=== PATIENT | female | born 1975 | race Caucasian/White ===

== ENCOUNTER → 2016-08-21 | Outpatient (CLI) | payer OTHER | LOC: FIMAGING 09:32 | PROVIDERS: ATTEND Obstetrics & Gynecology | DX: O09.522 Supervision of elderly multigravida, second trimester (principal); Z3A.13 13 weeks gestation of pregnancy; Z98.891 History of uterine scar from previous surgery ==

== ENCOUNTER 2017-02-28 18:45 | Inpatient (IN) | payer OTHER ==
[2017-02-28] MEDS ORDERED: OXYTOCIN/RINGERS LACTATE 1,000 ML IV PRN (19:42)
[2017-02-28] MEDS ORDERED: TERBUTALINE SULFATE 1 MG/ML VIAL IV PRN (19:42)
[2017-02-28] MEDS ORDERED: EPSOM SALT 454 GM TP PRN (19:42)
[2017-02-28] MEDS ORDERED: LIDOCAINE 1% 300 MG/30 ML SDV SC PRN (19:42)
[2017-02-28] MEDS ORDERED: OLIVE OIL 118 ML BTL MISC PRN (19:42)
[2017-02-28] MEDS ORDERED: LR 500 ML IV SCH ×2 (20:00→23:30)
[2017-02-28] MEDS: LR 1,000 ML IV PRN ×3 (20:09→22:30)
[2017-02-28 20:31] LABS: % IMMATURE GRANULYOCYTES 0.6 % (0.0-1.1); ABSOLUTE IMMATURE GRANULOCYTES 0.08 10^3/uL (0.00-0.10); ADD DIFF? NO; ADD MORPH? NO; ADD SCAN? NO; ATYPICAL LYMPHOCYTE FLAG 0 (0-99); FRAGMENT RBC FLAG 0 (0-99); HEMOGLOBIN 12.6 g/dL (12.6-16.3); LEFT SHIFT FLG 0 (0-99); LIPEMIA HEMOLYSIS FLAG 80 (0-99); MEAN CELL HEMOGLOBIN 29.4 pg (27.9-34.1); MEAN CELL HEMOGLOBIN CONCENTR. 33.2 g/dL (32.4-36.7); MEAN CELL VOLUME 88.6 fL (81.5-99.8); MEAN PLATELET VOLUME 13.2 fL (8.7-11.7); PLATELET CLUMPS FLAG 0 (0-99); PLATELET COUNT 166 10^3/uL (150-400); RED BLOOD CELL COUNT 4.29 10^6/uL (4.18-5.33); RED CELL DISTRIBUTION WIDTH 13.5 % (11.5-15.2)
[2017-02-28] MEDS ORDERED: TERBUTALINE SULFATE 1 MG/ML VIAL ONE (21:09)
[2017-02-28] MEDS ORDERED: AMMONIA AROMATIC 1 EACH AMP IH ONE (21:09)
[2017-02-28] MEDS ORDERED: OLIVE OIL 118 ML BTL ONE (21:09)
[2017-02-28] MEDS ORDERED: LIDOCAINE 1% 300 MG/30 ML SDV ONE (21:09)
[2017-02-28] MEDS ORDERED: OXYTOCIN 10 UNIT/ML VIAL ONE (21:10)
[2017-02-28] MEDS ORDERED: MISOPROSTOL 200 MCG TAB ONE (21:10)
[2017-02-28] MEDS ORDERED: METHYLERGONOVINE MAL 0.2 MG/ML INJ ONE (21:12)
[2017-02-28] MEDS ORDERED: fentaNYL 2MCG/ML/BUP 0.1% RTU 100 ML BAG EP ONE (21:47)
[2017-02-28] MEDS ORDERED: PHENYLEPHRINE HCL 100 MCG/ML SYR ONE (21:48)
[2017-02-28] MEDS ORDERED: NALOXONE HCL 0.4 MG/ML INJ IVP PRN (23:19)
[2017-02-28] MEDS ORDERED: PHENYLEPHRINE HCL 100 MCG/ML SYR IVP PRN (23:19)
[2017-02-28] MEDS ORDERED: ONDANSETRON 4 MG/2 ML VIAL IVP PRN (23:19)
--- NOTE | 2017-02-28 23:19 | PREANESOB ---
Obstetric Pre-Anesthesia Info - General Info : 2 Para: 1 Anesthesia Allergies/Adverse Reactions: Allergy/AdvReac Type Severity Reaction Status Date / Time No Known Allergies Allergy Unverified 02/28/17 19:40 Visit Medications: Generic Name Dose Route Start Last Admin Trade Name Pamela PRN Reason Stop Dose Admin Lactated Ringer's 1,000 mls @ 0 mls/hr 02/28/17 19:42 02/28/17 22:30 Lr IV 08/27/17 19:41 1,000 mls PRN PRN Administration SEE PROTOCOL CONDITIONS Protocol Per Protocol Oxytocin/Lactated Ringer's 1,000 mls @ 150 mls/hr 02/28/17 19:42 Pitocin 20 Units/Lr (Premix) IV PRN PRN Post- bleeding Lactated Ringer's 500 mls @ 0 mls/hr 02/28/17 20:00 Lr IV 08/27/17 19:59 CONT GENE As Directed Ibuprofen 600 mg 02/28/17 19:42 Motrin PO 08/27/17 19:41 Q6HRS PRN post , inflammation Lidocaine HCl 300 mg 02/28/17 19:42 Lidocaine Hcl 1% SC 08/27/17 19:41 ONCE PRN episiotomy Magnesium Sulfate 454 gm 02/28/17 19:42 Epsom Salt TP 08/27/17 19:41 Q1H PRN perineal discomfort [place] Oil 118 ml 02/28/17 19:42 Sweet Oil MISC 08/27/17 19:41 ONCE PRN preneal massage Terbutaline Sulfate 0.25 mg 02/28/17 19:42 Brethine IV 08/27/17 19:41 ONCE PRN Tachysystole Discontinued Medications Generic Name Dose Route Start Last Admin Trade Name Pamela PRN Reason Stop Dose Admin Ammonia (Aromatic Spirit) Confirm 02/28/17 21:09 Ammonia Aromatic Administered 02/28/17 21:10 Dose 1 each IH .STK-MED ONE Ephedrine Sulfate Confirm 02/28/17 21:09 Ephedrine Sulfate Administered 02/28/17 21:10 Dose 50 mg .ROUTE .STK-MED ONE Fentanyl/Bupivacaine HCl Confirm 02/28/17 21:47 Fentanyl/Bupivacaine/Ns 2 Mcg/Ml 0.1% (Premix Administered 02/28/17 21:48 Dose 100 ml EP .STK-MED ONE Lidocaine HCl Confirm 02/28/17 21:09 Lidocaine Hcl 1% Administered 02/28/17 21:10 Dose 300 mg .ROUTE .STK-MED ONE Methylergonovine Maleate Confirm 02/28/17 21:12 Methergine Administered 02/28/17 21:13 Dose 0.2 mg .ROUTE .STK-MED ONE Misoprostol Confirm 02/28/17 21:10 Cytotec Administered 02/28/17 21:11 Dose 800 mcg .ROUTE .STK-MED ONE [place] Oil Confirm 02/28/17 21:09 Sweet Oil Administered 02/28/17 21:10 Dose 118 ml .ROUTE .STK-MED ONE Oxytocin Confirm 02/28/17 21:10 Pitocin Administered 02/28/17 21:11 Dose 40 unit .ROUTE .STK-MED ONE Phenylephrine HCl Confirm 02/28/17 21:48 Neosynephrine Administered 02/28/17 21:49 Dose 1,000 mcg .ROUTE .STK-MED ONE Terbutaline Sulfate Confirm 02/28/17 21:09 Brethine Administered 02/28/17 21:10 Dose 1 mg .ROUTE .STK-MED ONE - Anesthesia History Response to Local Anesthetics: Normal Anesthesia & Operative History: No Prior Problems Family Anesthesia History: Negative - Social History Substance Use/Abuse: Denies - Focused Exam Height/Weight (Nursing): Height 167.64 cm Weight 78.925 kg Respiratory: lungs clear Cardiovascular: regular rate, rhythm ASA Status: II Labs: 02/28/17 20:09 Patient ABO/Rh O POSITIVE 02/28/17 20:09 - Plan Anesthetic Plan: PCEA Consent Signed and on Chart: Yes Patient/Guardian Understands and Agrees to Plan: Yes Urgent/Emergent Case: Junior belcher completed preop but documented later for safe timely pt care
--- NOTE | 2017-02-28 23:22 | SOAPPROG ---
SO[facility] Progress Note Assessment/Plan: Assessment: I have been immediately available, in the hospital, ready to provide care for this patient, since 19:45 on 02/28/2017. Received report from OB team. Plan: 02/28/17 23:20 Objective: Laboratory Results 02/28/17 20:09 ICD10 Worksheet Patient Problems: Problems Problem Status Onset Acute - ICD10 Problem Qualifiers (1) Qualifiers: Weeks of gestation: W
[2017-02-28] MEDS ORDERED: fentaNYL 2MCG/ML/BUP 0.1% RTU 100 ML EP SCH (23:30)
[2017-02-28] MEDS ORDERED: OXYTOCIN/RINGERS LACTATE 500 ML IV SCH (23:45)
[2017-02-28] MEDS ORDERED: LR 500 ML IV PRN (23:56)
--- NOTE | 2017-03-01 00:24 | OBPROG ---
OBG Labor Progress Note Assessment/Plan: Assessment: IUP at 39+ wks PCS for IONA AMA GBS- Plan: AROM to stim ctxn pattern 03/01/17 00:21 Subjective: Pt doing well with pain control with CRISTOPHER. Disc ctxn are spaced and rec AROM to increase freq. Pt anxious due to feeling pain in LLQ which intensifies with ctxn Objective: 02/28/17 20:09 Patient ABO/Rh O POSITIVE 02/28/17 20:09 - SVE Dilation (cm): 10 Effacement (%): 100 Station: 0 Schuler Current Contraction Pattern: Regular (q 4-5 min) FHR (bpm): 130 FHR Pattern Variability: Moderate FHR Category: 1 Membranes: AROM (23:24) Amniotic Fluid Color: Clear - Procedures Non-surgical Procedures: Amniotomy Oxytocin Orders Assessment - Pre-Induction/Augmentation Assessment Gestational Age: 39 week(s) and 4 day(s) ICD10 Worksheet Patient Problems: Problems Problem Status Onset Hx of section Acute Normal labor Acute Acute - ICD10 Problem Qualifiers (1) Hx of section (2) Normal labor
--- NOTE | 2017-03-01 01:06 | OBPROG ---
OBG Labor Progress Note Assessment/Plan: Assessment: IUP at 39+ wks PCS for IONA AMA GBS- Plan: AROM to stim ctxn pattern, added small amount pitocin will begin pushing soon 03/01/17 00:21 03/01/17 01:03 03/01/17 01:05 Subjective: Pt comfortable - has felt mild rectal pressure with ctxns - LLQ pain has gone Objective: 02/28/17 20:09 Patient ABO/Rh O POSITIVE 02/28/17 20:09 - SVE Dilation (cm): 10 Effacement (%): 100 Station: +2 Schuler Current Contraction Pattern: Regular (q 2-4 min on .5 pitocin mu/min) FHR (bpm): 130 FHR Pattern Variability: Moderate FHR Category: 2 (variable decels mild) Membranes: AROM (23:24) Amniotic Fluid Color: Clear - Procedures Non-surgical Procedures: Amniotomy Oxytocin Orders Assessment - Pre-Induction/Augmentation Assessment Gestational Age: 39 week(s) and 4 day(s) ICD10 Worksheet Patient Problems: Problems Problem Status Onset Hx of section Acute Normal labor Acute Acute - ICD10 Problem Qualifiers (1) Hx of section (2) Normal labor
--- NOTE | 2017-03-01 01:13 | GHP ---
[f rep st] PREOP HISTORY AND PHYSICAL DATE OF ADMISSION: 02/28/2017 HISTORY: Upon admission the patient is a 41-year-old, G2, P1, at 39+ weeks gestation with an estima monica due date of 03/03/2017 who presents in early spontaneous labor. The patient's contractions have been building throughout the day. They were milder for most of the day but in mid afternoon starte d increasing in intensity. The contractions were only about every 4-5 minutes upon presentation. B ag of water was intact and the patient was not having any bleeding. Upon initial cervical exam, maria e s patient was 4 cm dilated, 80% effaced, at -2 station. The patient was laboring well and had quick progress to 8 cm dilation and was waiting for anesthesia to be available to place an epidural. Care: The patient has been followed since 8 weeks gestation with [facility]. T he patient had a history with a prior section in [place], and the records were obtained fr om that operative note. They revealed the patient had a single-layer closure of her sectio n. The patient was advised through the that she undertook a slightly increased risk of ru pture from the previous scar since it was not a double layer closure. The patient desired to undert leonardo a trial of labor unless she had 40 weeks gestation in which case she would do a scheduled C-sect ion. The patient has signed a consent for a trial of labor. The patient had 1st trimester screenin g with maternal specialist that revealed a normal nuchal translucency and nasal bone. The pat ient had cell free DNA testing was negative. She also had the MSAFP that was negative. Her initial Pap smear in the showed low-grade YURIY. Followup was deferred to the time. Th e patient's ultrasound at 20 weeks revealed estimated weight at the 80th percentile, a posteri or placenta with no signs of previa and normal anatomy. The patient had been told in the prior preg clive she had fibroids but on the ultrasound at 20 weeks there were no fibroids identified. The pat ient had a followup ultrasound in the 3rd trimester that showed good growth. labs include maternal blood type O positive, with negative antibody screen, RPR nonreactive , rubella immune, hepatitis B surface antigen negative, HIV negative. Cystic fibrosis, SMA, fragile X, all negative. A 1-hour Glucola was checked 2 times during the and were both normal. Hematocrit at the onset of was 38th percentile which dropped to 36th percentile in mid pre gnancy, and the patient was initiated on iron. Urinalysis and culture were negative. As noted edita ier, the Pap was LGSIL. GBS culture was negative. PAST MEDICAL HISTORY: Negative except for a small fibroid noted in the 1st . Advanced mat ernal age. PAST SURGICAL HISTORY: Tonsillectomy and prior section. PAST OBSTETRIC HISTORY: In March 2014 a viable female at 7.5 pounds at 40 weeks gestation delmanuel ereraisa by section under a spinal. The patient had dilated to 10 cm but reports that pushing lasted approximately 3 hours at which time her contractions were initially every 4-6 minutes but the n spaced to greater than 5 minutes. The patient had declined any Pitocin during that labor process. Essentially the patient requested a due to maternal fatigue. ALLERGIES: The patient has no known drug allergies. CURRENT MEDICATIONS: Only vitamins. SOCIAL HISTORY: The patient is , lives with her and daughter, Sandra. 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 The patient is a nonsmoker. No alcoh ol or drug use. INITIAL EXAM: Patient is a well-developed, well-nourished, white female, in moderate distress with contractions upon presentation. The patient was uncomfortable with hip pain and very low pressure. The patient is afebrile and vital signs normal. See nursing documentation for full details. heart tones initially revealed category 1 tracing with baseline in the 130s with good variability a nd accelerations. Contractions were 4-6 minutes apart. On exam the patient had cervical dilation t o 9 cm with just a rim around the periphery symmetrically. Bulging bag of water. Head was still at 0 station. ASSESSMENT: Intrauterine at 39+ weeks with previous section attempting a trial o f labor. The patient requesting an epidural but awaiting anesthesia availability. Bag of water int act. Advanced maternal age with recent surveillance that has been normal and 3rd trimester ul trasound showing good growth. GBS negative. History of op note showing a single layer closure with a prior section. PLAN: Continue the breathe through contractions until anesthesia can place her epidural. Then will perform artificial rupture of membranes and use low-dose Pitocin if necessary. /[id number]/MODL
[2017-03-01] MEDS: LR 1,000 ML IV PRN (01:52)
[2017-03-01] MEDS ORDERED: ACETAMINOPHEN 500 MG TAB PO ONE ×2 (03:58→09:15)
[2017-03-01] MEDS ORDERED: HYDROCODONE/APAP 5/325 TAB PO PRN (06:30)
--- NOTE | 2017-03-01 06:36 | OBDEL ---
Info Type: Vaginal GBS+: No Indications for Delivery: Spontaneous Labor Vaginal Delivery - Labor and Delivery Onset of Contractions Date: 02/28/17 Onset of Contractions Time: 14:00 Onset of Contractions Type: Augmented (small amount pitocin after complete) Rupture of Membranes Date: 02/28/17 Rupture of Membranes Time: 23:24 Rupture of Membranes Type: Artificial Amniotic Fluid Color: Clear (meconium noted at end of pushing -thin) Dilation Complete Date: 02/28/17 Dilation Complete Time: 23:24 Placenta Delivery Date: 03/01/17 Placenta Delivery Time: 05:50 Total Hours of Labor: 15 Non-surgical Procedures: Amniotomy Laceration: 1st Degree (perineal and bilateral sulcus tears) Repair: 2-0, 3-0, Vicryl Vaginal Sponge Count Correct: Yes Vaginal Needle Count Correct: Yes Vaginal Sweep Performed: Yes EBL: 350 - Medications Labor Augmentation/Induction Methods Used: Pitocin Data Schuler Delivery Date: 03/01/17 Delivery Time: 05:44 KINGA: 03/03/17 Gestational Age: 39 week(s) and 5 day(s) Sex of : Male Score (1 Min): 8 Score (5 Min): 9 ICD10 Worksheet Patient Problems: Problems Problem Status Onset , delivered Acute Hx of section Acute - ICD10 Problem Qualifiers (1) Hx of section (2) Normal labor
--- NOTE | 2017-03-01 06:56 | OBGCSDC ---
General Delivery Information - General Info : 2 Para: 2 Delivery Physician/CNM: Yani Hassan Admission Date: 02/28/17 Labs: Patient ABO/Rh O POSITIVE 02/28/17 20:09 Hct 38.0 % (38.0-47.0) 02/28/17 20:09 Vaginal - Diagnosis Labor: Augmented (small amount pitocin after complete) Presentation at Delivery: Vertex Rupture of Membranes Type: Artificial Amniotic Fluid Color: Clear (meconium noted at end of pushing -thin) Laceration: 1st Degree (perineal and bilateral sulcus tears) Repair: 2-0, 3-0, Vicryl - Operations/Procedures Assisted Delivery Type: Vacuum (assisted with one pull to bring head under symphysis and then cont pushing) Non-surgical Procedures: Amniotomy L&D Analgesia/Anesthesia Type: Epidural, Nitrous - Hospital Course Antepartum: PCS for IONA, anxious because first C/S ([place]) was single layer closure. AMA and monitoring normal and third trimester Intrapartum: arrived at 4/80/-2 and had good rapid progress to complete. Desired CRISTOPHER and anesth tied up placing another one, finally able to place and pt comfortable. Poor ctxn pattern and low dose pit started. Some lates with pushing. complete at 23:24 and labored down and off/on pushing with pit adjusting due to ctxns spacing. VAVD done due to increasing late frequency. One easy pull and no pop -offs : Doing great. bld is lessened. Working on BF. mod cramps - Delivery Type: Vaginal Non-surgical Procedures: Amniotomy EBL: 350 Data Schuler Delivery Date: 03/01/17 Delivery Time: 05:44 KINGA: 03/03/17 Gestational Age: 39 week(s) and 6 day(s) Sex of Infant: Male Score (1 Min): 8 Score (5 Min): 9
[2017-03-01] MEDS: IBUPROFEN 600 MG TAB PO PRN ×3 (07:15→19:32)
[2017-03-01] MEDS: DOCUSATE SODIUM 100 MG CAP PO PRN (19:32)
[2017-03-01] MEDS: ACETAMINOPHEN 500 MG TAB PO PRN (21:09)
[2017-03-02] MEDS: IBUPROFEN 600 MG TAB PO PRN ×4 (01:29→20:08)
[2017-03-02] MEDS: ACETAMINOPHEN 500 MG TAB PO PRN (05:31)
[2017-03-02] MEDS ORDERED: SUCROSE 1 EA UDL ONE (05:54)
[2017-03-02] MEDS: IRON POLYSAC/IRON HEME 28 MG TAB PO SCH ×2 (08:24→20:07)
[2017-03-02] MEDS: DOCUSATE SODIUM 100 MG CAP PO PRN ×2 (08:24→20:07)
[2017-03-02 10:27] VITALS: O2SAT 97
[2017-03-02 20:48] VITALS: RESP 18
--- NOTE | 2017-03-02 21:06 | OBPP ---
Progress Note Assessment/Plan: Assessment: PPD 1 s/p anemia Plan: routine care, iron BID 03/01/17 00:21 03/01/17 01:03 03/01/17 01:05 03/02/17 21:04 Subjective: Pt doing well. bld is lessened. urinating fine. Baby is working on BF - mod cramps. bottom not too sore. using ibu. Objective: 03/02/17 05:36 Patient ABO/Rh O POSITIVE 02/28/17 20:09 Temp Pulse Resp BP Pulse Ox 36.4 C 86 18 135/82 H 97 03/02/17 20:00 03/02/17 20:00 03/02/17 20:00 03/02/17 20:00 03/02/17 20:00 Uterine Position/Fundal Height: Umbilicus -1 Uterine Tone: Firm Physical Exam - Physical Exam General Appearance: WD/WN, alert Abdomen: non-tender, soft, other (FF at umb -1, normal lochia) Extremities: non-tender, pedal edema (minimal) Skin: normal color, warm/dry Neuro/Psych: alert, normal mood/affect
[2017-03-03] MEDS: IBUPROFEN 600 MG TAB PO PRN ×2 (02:20→08:44)
[2017-03-03] MEDS: ACETAMINOPHEN 500 MG TAB PO PRN (06:00)
[2017-03-03] MEDS: IRON POLYSAC/IRON HEME 28 MG TAB PO SCH (08:44)
[2017-03-03] MEDS: DOCUSATE SODIUM 100 MG CAP PO PRN (08:44)
[2017-03-03 09:26] VITALS: BP 128/81; PULSE 73; TEMP 98.1
--- NOTE | 2017-03-03 09:31 | OBPP ---
Progress Note Assessment/Plan: Assessment:pain well managed nipples intact well ff@u scant rubra lochia voiding without difficulty perineum approximated denies difficulties or questions Plan:discharge to home with instructions discussed contraception, pain management, rest, ss infection, bleeding patterns, depression, pelvic rest, exercise, pericare 03/03/17 09:28 03/03/17 09:31 Subjective: Doing well. Denies pain. well. Voiding without difficulty Objective: 03/02/17 05:36 Patient ABO/Rh O POSITIVE 02/28/17 20:09 Temp Pulse Resp BP Pulse Ox 36.7 C 73 18 128/81 H 97 03/03/17 08:30 03/03/17 08:30 03/03/17 08:30 03/03/17 08:30 03/03/17 08:30 Uterine Position/Fundal Height: At Umbilicus Uterine Tone: Firm Physical Exam - Physical Exam General Appearance: WD/WN, alert, no apparent distress Abdomen: other (FF@u/ scant rubra lochia) Extremities: normal range of motion, Balbir's sign (negative bilaterally) DTR- Lower Extremities: Knee (R): 1+, Knee (L): 1+ (no clonus) Skin: normal color, warm/dry Neuro/Psych: no motor/sensory deficits, alert, normal mood/affect, oriented x 3
--- NOTE | 2017-03-03 09:34 | OBGCSDC ---
General Delivery Information - General Info : 2 Para: 2 Delivery Physician/CNM: Yani Hassan Admission Date: 02/28/17 Labs: Patient ABO/Rh O POSITIVE 02/28/17 20:09 Hct 30.7 % (38.0-47.0) L 03/02/17 05:36 Vaginal - Diagnosis Labor: Augmented (small amount pitocin after complete) Presentation at Delivery: Vertex Rupture of Membranes Type: Artificial Amniotic Fluid Color: Clear (meconium noted at end of pushing -thin) Laceration: 1st Degree (perineal and bilateral sulcus tears) Repair: 2-0, 3-0, Vicryl - Operations/Procedures Assisted Delivery Type: Vacuum (assisted with one pull to bring head under symphysis and then cont pushing) Non-surgical Procedures: Amniotomy L&D Analgesia/Anesthesia Type: Epidural, Nitrous - Hospital Course Antepartum: AMA, Desired tolac, Intrapartum: tolac VAginal delivery : Anemia, pain well managed, voiding without difficulty, perineum approximated, minimal swelling - Delivery Type: Vaginal Non-surgical Procedures: Amniotomy EBL: 350 L&D Analgesia/Anesthesia Type: Epidural, Nitrous Data Schuler Delivery Date: 03/01/17 Delivery Time: 05:44 KINGA: 03/03/17 Gestational Age: 40 week(s) and 0 day(s) Sex of Infant: Male Weight (gm): 0 g Score (1 Min): 8 Score (5 Min): 9
== END 2017-03-03 13:25 | disposition home or self-care (01) | DRG 775 ==
LOC: FLD 18:45 → FOB 03-01 09:25
PROVIDERS: ADMIT Obstetrics & Gynecology; ATTEND Obstetrics & Gynecology
PROC: 10D07Z6 Extraction of Products of Conception, Vacuum, Via Natural or Artificial Opening (ICD-10-PCS; principal; 2017-02-28)
PROC: 0HQ9XZZ Repair Perineum Skin, External Approach (ICD-10-PCS; principal; 2017-02-28)
PROC: 10907ZC Drainage of Amniotic Fluid, Therapeutic from Products of Conception, Via Natural or Artificial Opening (ICD-10-PCS; principal; 2017-02-28)
CPT/HCPCS: J2210; J2370; J2590; J3105

== ENCOUNTER 2018-09-30 13:32 | Emergency (ER) | payer OTHER ==
--- NOTE | 2018-09-30 14:09 | EDPHY ---
H & P Stated Complaint: Chest pressure/SOB/anxiety Time Seen by Provider: 09/30/18 13:46 HPI/ROS: CHIEF COMPLAINT: Chest discomfort HISTORY OF PRESENT ILLNESS: 42-year-old female presents with a one-week history of chest discomfort. She was walking 10 days ago, tripped and fell, landing on her left arm. Onset of upper back pain and chest discomfort after the injury. The chest discomfort is constant and mild to moderate. Increases with deep inspiration and is associated with a need to take a deep breath. LMP 3 weeks ago, regular. No shortness of breath, dizziness or other injuries. REVIEW OF SYSTEMS: complete 10 point ROS reviewed and is negative except for the noted elements in the HPI - Personal History LMP (Females 10-55): 22-28 Days Ago Current Tetanus/Diphtheria Vaccine: Yes - Medical/Surgical History Hx Asthma: No Hx Chronic Respiratory Disease: No Hx Diabetes: No Hx Cardiac Disease: No Hx Renal Disease: No Hx Cirrhosis: No Hx Alcoholism: No Other PMH: Section failure to descend. tonsillectomy - Social History Smoking Status: Former smoker - Physical Exam Exam: General Appearance: Alert, pleasant Eyes: Pupils equal and round, no conjunctival pallor ENT, Mouth: Mucous membranes moist Neck: Normal inspection Respiratory: normal inspection, no chest wall tenderness, Lungs are clear to auscultation Cardiovascular: Regular rate and rhythm, no murmur Gastrointestinal: Abdomen is soft and nontender Neurological: A&O, nonfocal exam Skin: Warm and dry, no rash Extremities: Nontender, no pedal edema Psychiatric: Mood and affect normal Constitutional: Initial Vital Signs Temperature (C) 37.1 C 09/30/18 13:35 Heart Rate 103 H 09/30/18 13:35 Respiratory Rate 16 09/30/18 13:35 Blood Pressure 147/98 H 09/30/18 13:35 O2 Sat (%) 99 09/30/18 13:35 O2 Delivery Mode Room Air Allergies/Adverse Reactions: No Known Allergies Allergy (Unverified 09/30/18 13:38) Home Medications: Medication Instructions Recorded NK [No Known Home Meds] 09/30/18 Medical Decision Making - Diagnostics EKG Interpretation: EKG interpreted by me reveals normal sinus rhythm, rate 80, borderline T-wave changes in the inferior leads. Interpretation: Borderline EKG Imaging Results: Imaging Impressions Chest X-Ray 09/30/18 13:46 Impression: Normal. Chest x-ray independently reviewed by me reveals no acute disease. Imaging: I viewed and interpreted images myself ED Course/Re-evaluation: This patient presents with atypical chest pain. After careful consideration and evaluation, I find no evidence of acute coronary syndrome. The patient has no risk factors for coronary disease, normal EKG and normal studies. Heart score is 0. I do not feel that additional ED testing is indicated. In addition, I feel that I can safely exclude pulmonary embolism, with normal vital signs, normal oxygen saturation and normal studies. PERC score negative; age less than 50, normal physical exam, no prior thromboembolism, no recent surgery, no estrogen use. In addition there is no evidence of pneumothorax, pneumonia, aortic dissection. Presentation c/w musculoskeletal etiology. Safe/ stable for d/c home. d/w pt early , pt shielded for CXR. Differential Diagnosis: Differential diagnosis includes though it is not limited to pneumonia, pneumothorax, pulmonary embolism, aortic dissection, pericarditis, acute coronary syndrome. - Data Points Laboratory Results: Laboratory Results 09/30/18 14:00 09/30/18 14:00 09/30/18 09/30/18 09/30/18 14:03 14:00 14:00 WBC RBC Hgb Hct MCV MCH MCHC RDW Plt Count MPV Neut % (Auto) Lymph % (Auto) [place] % (Auto) Eos % (Auto) Baso % (Auto) Nucleat RBC Rel Count Absolute Neuts (auto) Absolute Lymphs (auto) Absolute Monos (auto) Absolute Eos (auto) Absolute Basos (auto) Absolute Nucleated RBC Immature Gran % Immature Gran # D-Dimer Sodium 141 mEq/L mEq/L (135-145) Potassium 3.6 mEq/L mEq/L (3.5-5.2) Chloride 105 mEq/L mEq/L (97-110) Carbon Dioxide 22 mEq/l mEq/l (22-31) Anion Gap 14 mEq/L mEq/L (6-14) BUN 12 mg/dL mg/dL (7-23) Creatinine 0.7 mg/dL mg/dL (0.6-1.0) Estimated GFR > 60 Glucose 99 mg/dL mg/dL (70-100) Calcium 9.7 mg/dL mg/dL (8.5-10.4) POC Troponin I 0.01 ng/mL ng/mL (0.00-0.08) Beta HCG, Qual POSITIVE 09/30/18 09/30/18 14:00 14:00 WBC 7.78 10^3/uL 10^3/uL (3.80-9.50) RBC 4.86 10^6/uL 10^6/uL (4.18-5.33) Hgb 14.0 g/dL g/dL (12.6-16.3) Hct 42.0 % % (38.0-47.0) MCV 86.4 fL fL (81.5-99.8) MCH 28.8 pg pg (27.9-34.1) MCHC 33.3 g/dL g/dL (32.4-36.7) RDW 13.2 % % (11.5-15.2) Plt Count 192 10^3/uL 10^3/uL (150-400) MPV 11.2 fL fL (8.7-11.7) Neut % (Auto) 74.0 % % (39.3-74.2) Lymph % (Auto) 18.9 % % (15.0-45.0) [place] % (Auto) 5.8 % % (4.5-13.0) Eos % (Auto) 0.5 % L % (0.6-7.6) Baso % (Auto) 0.4 % % (0.3-1.7) Nucleat RBC Rel Count 0.0 % % (0.0-0.2) Absolute Neuts (auto) 5.76 10^3/uL 10^3/uL (1.70-6.50) Absolute Lymphs (auto) 1.47 10^3/uL 10^3/uL (1.00-3.00) Absolute Monos (auto) 0.45 10^3/uL 10^3/uL (0.30-0.80) Absolute Eos (auto) 0.04 10^3/uL 10^3/uL (0.03-0.40) Absolute Basos (auto) 0.03 10^3/uL 10^3/uL (0.02-0.10) Absolute Nucleated RBC 0.00 10^3/uL 10^3/uL (0-0.01) Immature Gran % 0.4 % % (0.0-1.1) Immature Gran # 0.03 10^3/uL 10^3/uL (0.00-0.10) D-Dimer < 0.27 ug/mLFEU ug/mLFEU (0.00-0.50) Sodium Potassium Chloride Carbon Dioxide Anion Gap BUN Creatinine Estimated GFR Glucose Calcium POC Troponin I Beta HCG, Qual Point of Care Test Results: Chemistry 09/30/18 14:03 POC Troponin I 0.01 ng/mL ng/mL (0.00-0.08) Departure - Departure Disposition: Home, Routine, Self-Care Clinical Impression: Chest pain Qualifiers: Chest pain type: intercostal pain Qualified Code(s): R07.82 - Intercostal pain Condition: Good Instructions: Chest Pain (ED) Additional Instructions: Tylenol 650 mg every 4 hr as needed for pain. Return for worsening symptoms or any concerns. Referrals: NONE *PRIMARY CARE P,. [Primary Care Provider] - As per Instructions
[2018-09-30 14:18] LABS: PLATELET COUNT 192 10^3/uL (150-400)
[2018-09-30 15:05] VITALS: BP 135/90
--- NOTE | 2018-09-30 17:29 | CPEKG ---
Test Reason : OPEN Blood Pressure : / mmHG Vent. Rate : 087 BPM Atrial Rate : 088 BPM P-R Int : 142 ms QRS Dur : 087 ms QT Int : 348 ms P-R-T Axes : 069 046 -11 degrees QTc Int : 419 ms Sinus rhythm Borderline T abnormalities, inferior leads Confirmed by Madeline Ballard ([id number]) on 09/30/2018 5:28:19 PM Referred By: Madeline Ballard Confirmed By:Madeline Ballard
== END 2018-09-30 15:07 | disposition home or self-care (01) ==
DX: R07.82 Intercostal pain (principal)
CPT/HCPCS: 84484-ER

== ENCOUNTER 2018-11-18 08:17 | Day surgery (SDC) | payer OTHER ==
--- NOTE | 2018-11-15 18:27 | GHP ---
[f rep st] PREOP HISTORY AND PHYSICAL DATE OF ADMISSION: 11/18/2018 DATE OF SURGERY: 11/18/2018. PREOPERATIVE DIAGNOSIS: Incomplete , retained products of conception. SURGERY TO BE PERFORMED: Suction dilation and curettage. HISTORY OF PRESENT ILLNESS: The patient is a 43-year-old, 3, para 2-0-1-2, who has an incomp lete . She was first diagnosed with an abnormal blighted ovum on October 26, 2018. She presented for a viability ultrasound, which revealed a gestational sac only. No yolk sac or embr yo seen, measuring 6 weeks 1 day when her dates were 7 weeks. The patient was given treatment option s of expectant management, versus medical management, versus surgical management. The patient initicarson gregorioy wanted expectant management for a couple weeks. She is O-positive and did not need RhoGAM. She began having bleeding immediately a week after that ultrasound, heavy bleeding, large clots, gushing blood and cramping, and had an ultrasound again on November 04 that revealed complex tissue in the endometr ial canal and some retained products of conception. However, she was continuing to bleed and wanted to see if her body would complete the process on its own. She is done bleeding, feeling fine. [facility], ultrasound on the revealed a thickened endometrium, 1.34 cm that has heterogeneous increased flow and definitely is retained products of conception. At this point, I offered her medical manage ment versus surgical management and she wished to have surgical management with a suction dilation an d curettage. PAST OBSTETRICAL HISTORY: She is a 3. In March of 2014, she had a for arrest of descent; a viable female, 7 pounds. In February of 2017, she had a successful , a viable male, 7 pounds 4 ounces, and then this is her third , was diagnosed with abnormal labs and abnorma l ultrasound. PAST GYNECOLOGICAL HISTORY: She had normal menarche at age 12-13, interval every 28 days. No gyneco logical problems. Had a sure and regular last menstrual. She has no significant medical problems. PAST SURGICAL HISTORY: Significant for the and a tonsillectomy. ALLERGIES: She has no known drug allergies and her blood type is O positive. FAMILY HISTORY: Noncontributory. SOCIAL HISTORY: She is . She lives with her and her 2 children. 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 She denies tobacco. Has social alcohol. No drug use. REVIEW OF SYSTEMS: Negative except for pertinent positives as above in the HPI. OBJECTIVE: VITAL SIGNS: Blood pressure is 122/82, weight is 147. GENERAL: She is a well-developed , well-nourished white female in no acute distress. LUNGS: Clear to auscultation bilaterally. HEAR T: Regular rate and rhythm. No murmur. ABDOMEN: Soft, nontender and nondistended. Normal bowel s ounds. PELVIC: Normal external genitalia. Normal paracervix. Uterus is nontender, nondistended. Ultrasound findings are as above. ASSESSMENT AND PLAN: A 43-year-old, 3, para 2-0-1-2 with an incomplete , retained pr oducts of conception. She was consented for a suction dilation and curettage. She understands the r isks and benefits. The risks including bleeding, infection, damage to the uterus including possible risk of perforation, damage to other organs if perforation was to occur, need for additional procedur es and compromise of future fertility. She understands these risks and benefits and agreed to barber souza /[id number]/OTIS
[2018-11-18] MEDS ORDERED: LR 1,000 ML IV ONE (08:49)
[2018-11-18] MEDS ORDERED: DOXYCYCLINE HYCLATE 100 MG CAP/TAB PO ONE ×2 (08:49→09:37)
--- NOTE | 2018-11-18 09:37 | PDHPUP ---
History & Physical Update H&P update statement: This history and physical update is based on an assessment of the patient which was completed after admission or registration (within 24 hours), but prior to the surgery/procedure. H&P update: H&P reviewed & patient examined, no change in patient's condition since H&P completed
--- NOTE | 2018-11-18 09:40 | POSTOPPROG ---
Post Op Note Date of Operation: 11/18/18 Surgeon: Debbie Monroe Movement Therapist: None Anesthesiologist: Sandro Thompson Anesthesia: Other (Specify) (MAC) Pre-op Diagnosis: Incomplete AB with retained POCs Post-op Diagnosis: Incomplete AB with retained POCs Indication: 43 y/o w/ blighted ovum @ 6 1/7 wks w/ VB, f/u u/s - retained POCs Procedure: Suction D&C under u/s guidance Findings: No VB; os 1 cm; uterus sounded to 9 cm. Minimal POCs noted. Rh pos. Inf/Abcess present in the surg proc area at time of surgery?: No Depth: Organ Space EBL: 50-100 (50cc) Total fluids administered: 1200 cc LR UO: Pt emptied bladder prior to OR Complications: None Bowel Protocol: N/A Clean Closure Performed: N/A Specimen(s): POCs
[2018-11-18] MEDS ORDERED: MISOPROSTOL 200 MCG TAB ONE (09:43)
[2018-11-18] MEDS ORDERED: MIDAZOLAM 2 MG/2 ML VIAL ONE (09:46)
[2018-11-18] MEDS ORDERED: MIDAZOLAM 2 MG/2 ML VIAL IVP ONE (09:46)
--- NOTE | 2018-11-18 09:46 | PREANESOB ---
Anesthesia Allergies/Adverse Reactions: Allergy/AdvReac Type Severity Reaction Status Date / Time No Known Allergies Allergy Unverified 09/30/18 13:38 Home Medications: Medication Instructions Recorded NK [No Known Home Meds] 09/30/18 Visit Medications: Generic Name Dose Route Start Last Admin Trade Name Pamela PRN Reason Stop Dose Admin Doxycycline Hyclate 100 mg 11/18/18 09:37 Doxycycline Hyclate PO 11/18/18 09:38 ONCE ONE Protocol Discontinued Medications Generic Name Dose Route Start Last Admin Trade Name Freq PRN Reason Stop Dose Admin Doxycycline Hyclate 100 mg 11/18/18 08:49 11/18/18 09:21 Doxycycline Hyclate PO 11/18/18 08:50 100 mg ONCALL ONE Administration Protocol Lactated Ringer's 1,000 mls @ 0 mls/hr 11/18/18 08:49 11/18/18 09:22 Lr IV 11/18/18 08:50 1,000 mls ONCALL ONE Administration TKO Misoprostol Confirm 11/18/18 09:43 Cytotec Administered 11/18/18 09:44 Dose 1,000 mcg .ROUTE .STK-MED ONE - Anesthesia History Response to Local Anesthetics: Normal Anesthesia & Operative History: No Prior Problems - Social History Substance Use/Abuse: Denies - Vital Signs Latest Vital Signs (Nursing): Temp Pulse Resp BP Pulse Ox 36.4 C 82 16 133/78 H 96 11/18/18 08:54 11/18/18 08:54 11/18/18 08:54 11/18/18 08:54 11/18/18 08:54 Height/Weight (Nursing): Height 162.56 cm Weight 64.41 kg - Focused Exam Neck exam: FROM Mallampati Score: Class 1 Mouth exam: normal dental/mouth exam Pulmonary: no respiratory distress Cardiovascular: regular rate and rhythym - Plan Anesthetic Plan: MAC Consent Signed and on Chart: Yes
[2018-11-18] MEDS ORDERED: PROPOFOL/EMULSION 500 MG/50 ML BOTTLE IV ONE (09:57)
[2018-11-18] MEDS ORDERED: LIDOCAINE 2% 100 MG/5 ML SYR ONE (09:57)
[2018-11-18] MEDS ORDERED: fentaNYL 100 MCG/2 ML INJ ONE (10:11)
--- NOTE | 2018-11-18 11:06 | GOP ---
[f rep st] OPERATIVE REPORT DATE OF OPERATION: 11/18/2018 SURGEON: Debbie Monroe DO ADMISSIONS NURSE: None. ANESTHESIA: MAC. ANESTHESIOLOGIST: Sandro Thompson MD PREOPERATIVE DIAGNOSIS: Incomplete . POSTOPERATIVE DIAGNOSIS: Incomplete . PROCEDURE PERFORMED: Suction dilatation and curettage under ultrasound guidance. FINDINGS: No active bleeding noted. The cervix was dilated to 1 cm. Uterus sounded to 9 cm and a curved 8 mm suction curette was used. Minimal products of conception noted. Patient is Rh positive. SPECIMENS: Products of conception. INDICATIONS: The patient is a 43-year-old, G3, P2-0-1-2, who presented for new OB visit and had an ultrasound done showing a gestational sac measuring 6 weeks and 1 day; size less than dates by 7 days, with no yolk sac or pole noted consistent with a blighted ovum. The patient was given treatment options at that time and wanted to observe and see what her body would do. A week later, she had heavy vaginal bleeding and a followup ultrasound was done to see if patient had passed all products of conception. On ultrasound, there was noted to be a thickened, heterogeneous lining consistent with retained products. The patient was given treatment options including medical management with Cytotec versus surgical management with D and C. The patient desired surgical management with D and C. Patient is Rh positive. Today, she presents with no complaints of vaginal bleeding or cramping. Discussed risks, benefits, and alternatives of the procedure including but not limited to, bleeding, infection , damage to surrounding organs, risk of uterine perforation, risk of uterine scarring that can affect future fertility. Patient understands all risks at this time and wants to proceed to the operating room. Patient was properly consented. DESCRIPTION OF PROCEDURE: Patient was taken to the operating room where anesthesia was obtained without difficulty. The patient was placed in dorsal lithotomy position on the operating table and then prepped and draped in the usual sterile fashion. After a WHO time-out was performed, an open-ended speculum was placed in the patient's vagina. The patient was then placed in Trendelenburg. The anterior lip of the cervix was grasped with an Allis clamp. The cervix was already noted to be dilated 1 cm and did not need to be further dilated. The uterus was gently sounded to 9 cm. A curved 8 mm suction curette was then introduced and suction curette was performed multiple times under ultrasound guidance. Once all products of conception were evacuated, a sharp curettage was performed. This was performed until a gritty surface was appreciated in all 4 quadrants of the uterus. Minimal bleeding was noted at this time. The suction curette was passed one last time to remove any remaining products of conception. On ultrasound, the endometrial stripe was thin and there was no other areas of suspicion for retained products. All instruments were then removed from the vagina. Hemostasis was noted. Patient tolerated the procedure well. There were no complications. Sponge, lap, and instrument counts correct x2. The patient was then taken out of dorsal lithotomy position, awakened, and taken to the recovery room in stable condition. The patient was given 100 mg of doxycycline prior to the start of the case and will receive another 100 mg in the PACU. /[id number]/MODL MTDD
[2018-11-18 11:51] VITALS: BP 111/79
== END 2018-11-18 11:45 | disposition home or self-care (01) ==
LOC: FSGY 08:17 → FOBOP 11:45
PROVIDERS: ATTEND Obstetrics & Gynecology
PROC: 10D18ZZ Extraction of Products of Conception, Retained, Via Natural or Artificial Opening Endoscopic (ICD-10-PCS; principal; 2018-11-18)
DX: O02.0 Blighted ovum and nonhydatidiform mole (principal); O73.0 Retained placenta without hemorrhage
CPT/HCPCS: J2001; J2250; J2704; J3010